=== PATIENT | female | born 1945 | race Hispanic/Latino ===

== ENCOUNTER 2018-07-21 12:42 | Inpatient (IN) | payer MEDICARE ==
[2018-07-21 12:42] VITALS: BMI 35.4
--- NOTE | 2018-07-21 13:13 | ED PDOC ---
Arrival/HPI - General Historian: Patient, Family (Sister) - History of Present Illness Narrative History of Present Illness (Text): 07/21/18 13:06 72 y o female PMhx HTN, TIA (2016) presents to the ED [facility] after being found lying down on floor by sister this am. Pt's sister at bedside states that she called pt this am over the phone, stated that her speech sounded funny, and went over to the house to visit her. States she found pt lying down on floor on R side. Unknown time down on floor. Pt lives alone at home, uses walker to ambulate regularly. Unknown if pt hit head or lost consciousness during fall. Pt denies being in any pain currently, in no acute distress. Denies headache, dizziness, fever, chills, chest pain, sob, n/v/d/c, abd pain, urinary complaints or other symptoms currently. Denies hx of multiple falls recently. Denies hx of being on blood thinners. PMhx: HTN, TIA (2016) PSurgHx: tonsillectomy in childhood Allergies: NKDA Home meds: not known as per pt and pt's sister Fam hx: denies Soc hx: denies smoking, EtOH or illicit drug use PMD: Dr. Thompson Time/Duration: Prior to Arrival Symptom Onset: Other (Unknown) Symptom Course: Unchanged Quality: Unable to Describe Activities at Onset: Other (Unknown) Context: Home <Canelo Spring - Last Filed: 07/21/18 17:07> <Sean Samuel - Last Filed: 07/25/18 11:07> - General Chief Complaint: Trauma Time Seen by Provider: 07/21/18 12:43 Past Medical History - Provider Review Nursing Documentation Reviewed: Yes - Travel History Have you recently traveled outside [place] w/in the past 3 mons?: No - Infectious Disease Hx of Infectious Diseases: None - Reproductive Menopause: Yes - Cardiac Hx Cardiac Disorders: Yes Hx Hypertension: Yes - Pulmonary Hx Respiratory Disorders: No - Neurological Hx Neurological Disorder: Yes Hx Transient Ischemic Attacks (TIA): Yes (02-28-16) - HEENT Hx HEENT Disorder: No - Renal Hx Renal Disorder: No - Endocrine/Metabolic Hx Endocrine Disorders: No - Hematological/Oncological Hx Blood Disorders: No - Integumentary Hx Dermatological Disorder: Yes (MOHS SX TO FACE) - Musculoskeletal/Rheumatological Hx Musculoskeletal Disorders: Yes Hx Falls: No Hx Gout: Yes (LEFT ARM WITH SX.) - Gastrointestinal Hx Gastrointestinal Disorders: No - Genitourinary/Gynecological Hx Genitourinary Disorders: Yes Hx Incontinence: Yes (WEARS POISE PADS/URGENCY,FREQUENCY) - Psychiatric Hx Psychophysiologic Disorder: No Hx Substance Use: No - Surgical History Hx Orthopedic Surgery: Yes (LEFT ARM SX FROM FALL/FX) - Anesthesia Hx Anesthesia: Yes Hx Anesthesia Reactions: No Hx Malignant Hyperthermia: No <Canelo Spring - Last Filed: 07/21/18 17:07> Family/Social History Family/Social History: No Known Family HX Smoking Status: Never Smoked Hx Alcohol Use: No Hx Substance Use: No <Canelo Spring - Last Filed: 07/21/18 17:07> Allergies/Home Meds <Canelo Spring - Last Filed: 07/21/18 17:07> <Sean Samuel - Last Filed: 07/25/18 11:07> Allergies/Adverse Reactions: Allergies No Known Allergies Allergy (Verified 07/21/18 12:53) Home Medications: Home Meds Medication Instructions Recorded Confirmed RX: Lisinopril [Zestril] 40 mg PO DAILY 07/21/18 07/21/18 Review of Systems - Physician Review All systems were reviewed & negative as marked: Yes - Review of Systems Constitutional: absent: Fatigue, Fevers, Night Sweats Eyes: absent: Vision Changes ENT: absent: Hearing Changes, Tinnitus Respiratory: absent: SOB, Cough, Sputum, Wheezing Cardiovascular: absent: Chest Pain, Palpitations, Edema, HINOJOSA Gastrointestinal: absent: Abdominal Pain, Stool Changes, Constipation, Diarrhea, Nausea, Vomiting, Appetite Changes Genitourinary Female: absent: Dysuria, Frequency, Urine Output Changes Musculoskeletal: absent: Arthralgias, Back Pain, Neck Pain, Myalgias Skin: absent: Rash Neurological: absent: Headache, Dizziness, Focal Weakness, Gait Changes Endocrine: absent: Diaphoresis <Canelo Spring - Last Filed: 07/21/18 17:07> Physical Exam Appearance: Positive for: Well-Appearing, Non-Toxic, Comfortable Pain Distress: None Mental Status: Positive for: other (AAOx2) - Systems Exam Head: Present: Atraumatic, Normocephalic Pupils: Present: PERRL Extroacular Muscles: Present: EOMI Conjunctiva: Present: Normal Mouth: Present: Moist Mucous Membranes Neck: Present: Normal Range of Motion. No: MIDLINE TENDERNESS, JVD, Lymphadenopathy Respiratory/Chest: Present: Clear to Auscultation, Good Air Exchange. No: Respiratory Distress, Accessory Muscle Use, Wheezes, Rales, Rhonchi Cardiovascular: Present: Regular Rate and Rhythm, Normal S1, S2. No: Murmurs, Rub, Gallop Abdomen: Present: Normal Bowel Sounds. No: Tenderness, Distention, Guarding, Mass/Organomegaly Back: Present: Normal Inspection. No: Paraspinal Tenderness, Pain with Leg Raise Upper Extremity: Present: Normal Inspection, Normal ROM, NORMAL PULSES, Neurovascularly Intact, Capillary Refill < 2s. No: Cyanosis, Edema, Temperature Abnormalties Lower Extremity: Present: Normal Inspection, NORMAL PULSES, Normal ROM, Neurovascularly Intact, Capillary Refill < 2 s. No: Edema, CALF TENDERNESS Neurological: Present: GCS=15, CN II-XII Intact, Speech Normal, Motor Func Grossly Intact, Normal Sensory Function, Normal Cerebellar Funct Skin: Present: Warm, Dry, Other (Contusion noted adjacent to R elbow). No: Rashes Psychiatric: Present: Alert (Oriented x2), Normal Insight, Normal Concentration <Canelo Spring - Last Filed: 07/21/18 17:07> Medical Decision Making ED Course and Treatment: 07/21/18 13:16 72 y o female PMHx HTN, TIA BiBEMS s/p being found on floor at home. Plan: -Labs -EKG -Imaging Will continue to monitor. 07/21/18 14:47 WBC 20.7. Troponin elevated at 6.34. CT head demonstrates 5 mm round high attenuation at L basal ganglia/thalamus new compared to prior exam. Differential consideration includes hemorrhagic small lesion vs. less likely posttraumatic in deep hemorrhage. F/u study or further eval by MRI suggested. Case endorsed to Dr. Thompson, who will accept pt under his service. Requested ICU eval and Dr. Donohue to consulted for Cardiology. Case endorsed to ICU clearing distribution clerk Dr. Ortiz, who will come to evaluate pt. Placed call out to Dr. Livingston's service (Neurosurgery), awaiting callback by attending. - RAD Interpretation Radiology Orders: 07/21/18 13:05 CHEST PORTABLE [RAD] Stat - EKG Interpretation EKG Interpretation (Text): 07/21/18 13:23 NSR at 98 bpm, LBBB unchanged from prior study in 2016. Interpreted by ED Physician: Yes Type: 12 lead EKG <Canelo Spring - Last Filed: 07/21/18 17:07> ED Course and Treatment: 07/21/18 13:52 Patient is a 72 year old female presenting to the emergency department for an unwitnessed fall. In agreement with resident note, which includes further HPI details. Patient was seen and evaluated with resident, came up with plan and treatment together. s/p "found on floor". pt found with nstemi, rhabdo, ?intracranial bleed. accepted icu. 07/25/18 11:06 - RAD Interpretation Radiology Orders: 07/21/18 13:05 CHEST PORTABLE [RAD] Stat 07/21/18 13:06 HEAD W/O CONTRAST [CT] Stat ELBOW RIGHT 3 VIEWS ROUTINE [RAD] Stat <Sean Samuel - Last Filed: 07/25/18 11:07> - PA / HUMANITIES PROFESSOR / Resident Statement MD/DO has reviewed & agrees with the documentation as recorded. MD/DO has examined the patient and agrees with the treatment plan. - Scribe Statement The provider has reviewed the documentation as recorded by the Tony Bhatia All medical record entries made by the Tony were at my direction and personally dictated by me. I have reviewed the chart and agree that the record accurately reflects my personal performance of the history, physical exam, medical decision making, and the department course for this patient. I have also personally directed, reviewed, and agree with the discharge instructions and disposition. <Sean Samuel - Last Filed: 07/25/18 11:07> Disposition/Present on Arrival - Present on Arrival Any Indicators Present on Arrival: No History of DVT/PE: No History of Uncontrolled Diabetes: No Urinary Catheter: No History of Decub. Ulcer: No History Surgical Site Infection Following: None - Disposition Have Diagnosis and Disposition been Completed?: Yes Disposition Time: 16:30 Patient Plan: ICU <Canelo Spring - Last Filed: 07/21/18 17:07> <Sean Samuel - Last Filed: 07/25/18 11:07> - Disposition Diagnosis: NSTEMI (non-ST elevated myocardial infarction), Rhabdomyolysis, Status post fall, Leukocytosis Disposition: HOSPITALIZED Patient Problems: Current Active Problems Problem Status Onset Leukocytosis Acute NSTEMI (non-ST elevated myocardial infarction) Acute Rhabdomyolysis Acute Status post fall Acute Condition: GUARDED
[2018-07-21 14:01] LABS: ALB/GLOB RATIO 1.3 (1.1-1.8); ALBUMIN 4.6 g/dL (3.0-4.8); ALT/SGPT 48 U/L (7-56); AST/SGOT 171 U/L (14-36); BLOOD UREA NITROGEN 28 mg/dL (7-21); CALCIUM 9.8 mg/dL (8.4-10.5); GFR NON-AFRICAN AMERICAN 55
[2018-07-21 14:04] LABS: BASO # 0.01 K/mm3 (0.0-2.0); GRAN # 18.51 (1.4-6.5); GRAN % 89.6 % (50.0-68.0); HEMOGLOBIN 16.3 g/dL (12.0-16.0); LYMPH # 1.7 (1.2-3.4); MEAN CELL VOLUME 94.2 fl (80.0-105.0); MEAN CORPUSCULAR HEMOGLOBIN 32.8 pg (25.0-35.0); MEAN CORPUSCULAR HGB CONC 34.8 g/dl (31.0-37.0); MEAN PLATELET VOLUME 11.3 fl (7.0-11.0); MONO # 0.5 (0.1-0.6); MONO % 2.4 % (1.0-6.0); RBC 4.97 10^6/uL (3.5-6.1); RED CELL DISTRIBUTION WIDTH 13.5 % (11.5-14.5); WHITE BLOOD COUNT 20.7 10^3/uL (4.5-11.0)
[2018-07-21 14:15] LABS: INR 1.03; PARTIAL THROMBOPLASTIN TIME 25.6 Seconds (25.1-36.5); PROTHROMBIN TIME 11.7 SECONDS (9.4-12.5)
[2018-07-21 14:16] LABS: TROPONIN I 6.34 ng/mL
--- NOTE | 2018-07-21 14:40 | CT ---
Date of service: 07/21/2018 PROCEDURE: CT HEAD WITHOUT CONTRAST. HISTORY: fall COMPARISON: Comparison is made to the previous study dated 02/27/2016 TECHNIQUE: Axial computed tomography images were obtained through the head/brain without intravenous contrast. Radiation dose: Total exam DLP = 959.27 mGy-cm. This CT exam was performed using one or more of the following dose reduction techniques: Automated exposure control, adjustment of the mA and/or kV according to patient size, and/or use of iterative reconstruction technique. FINDINGS: HEMORRHAGE: There is around 5 millimeter high attenuation lesion at left basal ganglia/ thalamus may represent hemorrhagic lesion or less likely posttraumatic hemorrhage. These findings are new when compared to the previous exam. Otherwise no evidence of acute intracranial hemorrhage. BRAIN: No evidence of mass effect or midline shift. Volume loss and moderate to extensive white matter chronic microvascular ischemic changes are again noted. VENTRICLES: Unremarkable. No hydrocephalus. CALVARIUM: Unremarkable. PARANASAL SINUSES: Unremarkable as visualized. No significant inflammatory changes. MASTOID AIR CELLS: Unremarkable as visualized. No inflammatory changes. OTHER FINDINGS: None. IMPRESSION: 5 millimeter round high attenuation at the left basal ganglia/thalamus new compared to the previous exam. The differential consideration includes hemorrhagic small lesion versus less likely posttraumatic in deep hemorrhage. Follow-up study or further evaluation by MRI is suggested. Volume loss and chronic microvascular white matter ischemic disease.
[2018-07-21 15:01] LABS: CK MB% 0.7 % (2.5-3.0); CK-MB 35.9 ng/mL (0.0-3.6)
[2018-07-21] MEDS ORDERED: Sodium Chloride 0.9% 1,000 ML IV STA (15:03)
--- NOTE | 2018-07-21 15:39 | CP.PCM.CON ---
History of Present Illness - History of Present Illness History of Present Illness: MICU CONSULT NOTE HPI Patient is 72yo female with PMHx of HTN, TIA, presented after being found down on the floor by her relative. As per the patient she "tripped on some shoes, and fell, was down for 15 minutes". The patient denies fever, chills, cough, chest pain, sob, palpitations, JACOME, dizziness. NO other constitutional symptoms. NO major complaints. Labs demonstrated multiple derrangements, including elevated CPK, Troponin. CT head with questionable BG bleed, MRI pending. ECHO being done currently, cardiology and neurology consulted. PMhx: HTN, TIA (2016) PSurgHx: tonsillectomy Allergies: NKDA Home meds: unknown Fam hx: denies Soc hx: denies smoking, EtOH or illicit drug use Review of Systems - Review of Systems Review of Systems: as per HPI Past Patient History - Infectious Disease Hx of Infectious Diseases: None - Past Social History Smoking Status: Never Smoked - CARDIAC Hx Cardiac Disorders: Yes Hx Hypertension: Yes - PULMONARY Hx Respiratory Disorders: No - NEUROLOGICAL Hx Neurological Disorder: Yes Hx Transient Ischemic Attacks (TIA): Yes (02-28-16) - HEENT Hx HEENT Problems: No - RENAL Hx Chronic Kidney Disease: No - ENDOCRINE/METABOLIC Hx Endocrine Disorders: No - HEMATOLOGICAL/ONCOLOGICAL Hx Blood Disorders: No - INTEGUMENTARY Hx Dermatological Problems: Yes (MOHS SX TO FACE) - MUSCULOSKELETAL/RHEUMATOLOGICAL Hx Musculoskeletal Disorders: Yes Hx Falls: No Hx Gout: Yes (LEFT ARM WITH SX.) - GASTROINTESTINAL Hx Gastrointestinal Disorders: No - GENITOURINARY/GYNECOLOGICAL Hx Genitourinary Disorders: Yes Hx Incontinence: Yes (WEARS POISE PADS/URGENCY,FREQUENCY) - PSYCHIATRIC Hx Psychophysiologic Disorder: No Hx Substance Use: No - SURGICAL HISTORY Hx Orthopedic Surgery: Yes (LEFT ARM SX FROM FALL/FX) - ANESTHESIA Hx Anesthesia: Yes Hx Anesthesia Reactions: No Hx Malignant Hyperthermia: No Meds Allergies/Adverse Reactions: Allergies Allergy/AdvReac Type Severity Reaction Status Date / Time No Known Allergies Allergy Verified 07/21/18 12:53 - Medications Medications: Current Medications Sodium Chloride (Sodium Chloride 0.9%) 1,000 mls @ 999 mls/hr IV .Q1H1M STA Stop: 07/21/18 16:03 Last Admin: 07/21/18 15:11 Dose: 999 mls/hr Physical Exam - Constitutional Appears: Well, Non-toxic - Head Exam Head Exam: ATRAUMATIC - Eye Exam Eye Exam: EOMI - ENT Exam ENT Exam: Mucous Membranes Moist - Neck Exam Neck exam: Positive for: Full Rom - Respiratory Exam Respiratory Exam: Clear to Auscultation Bilateral, NORMAL BREATHING PATTERN - Cardiovascular Exam Cardiovascular Exam: REGULAR RHYTHM, +S1, +S2 - GI/Abdominal Exam GI & Abdominal Exam: Normal Bowel Sounds, Soft - Extremities Exam Extremities exam: Positive for: normal inspection - Back Exam Back exam: NORMAL INSPECTION - Neurological Exam Neurological exam: Alert, Oriented x3 - Psychiatric Exam Psychiatric exam: Normal Affect, Normal Mood - Skin Skin Exam: Normal Color, Warm Results - Vital Signs Recent Vital Signs: Last Vital Signs Temp 97.7 F 07/21/18 14:15 Pulse 99 H 07/21/18 14:15 Resp 18 07/21/18 14:15 BP 138/83 07/21/18 14:15 Pulse Ox 94 L 07/21/18 14:15 - Labs Result Diagrams: 07/21/18 13:10 07/21/18 13:10 Labs: Laboratory Results - last 24 hr 07/21/18 07/21/18 07/21/18 13:10 13:10 13:10 WBC 20.7 H RBC 4.97 Hgb 16.3 H Hct 46.8 MCV 94.2 MCH 32.8 MCHC 34.8 RDW 13.5 Plt Count 210 MPV 11.3 H Gran % 89.6 H Lymph % (Auto) 8.0 L Hays % (Auto) 2.4 Eos % (Auto) 0.0 L Baso % (Auto) 0.0 Gran # 18.51 H Lymph # (Auto) 1.7 Hays # (Auto) 0.5 Eos # (Auto) 0.0 Baso # (Auto) 0.01 PT 11.7 INR 1.03 APTT 25.6 Sodium 143 Potassium 4.3 Chloride 107 Carbon Dioxide 26 Anion Gap 14 BUN 28 H Creatinine 1.0 Est GFR ( Amer) > 60 Est GFR (Non-Af Amer) 55 Random Glucose 117 H Calcium 9.8 Magnesium 2.2 Total Bilirubin 1.1 AST 171 H ALT 48 Alkaline Phosphatase 107 Lactate Dehydrogenase 1060 H Total Creatine Kinase 4971 H CK-MB (CK-2) 35.9 H CK-MB (CK-2) % 0.7 L Troponin I 6.34 H* D Total Protein 8.1 Albumin 4.6 Globulin 3.5 Albumin/Globulin Ratio 1.3 - EKG Data EKG comments: NSR, LBBB (old), NSST changes - Imaging and Cardiology Chest x-ray Status: Image reviewed by me, Report reviewed by me Assessment & Plan - Assessment and Plan (Free Text) Assessment: 72yo female a/w rhabdo, elevated troponin, possible ICH Rhabdomyolosis Elevated Troponin Fall rule out ICH Fall Dehydration - currently afebrile, BP stable, comfortable in NAD, AAOx3, NAD, providing full history, denies any complaints - will obtain MRI brain stat, if negative for bleed, will start dual anti platelet, Heparin, possible cath, cardiology Dr Donohue Consulted Recommend: - supp o2 as needed, duonebs PRN - panculture, UCx, BCx, UA, check Procal, no obvious source of infection would hold Abx for now - IVF 125cc/hr - hold ASA, Plavix, Heparin for now, until MRI brain is done to rule out whether or not patient as ICH - cardiology eval - Neuro eval - ECHO - NPO - Troponin, CPK q6hr - GI ppx - DVT ppx, SCDs - Admit to CCU critical care time 35 minutes
--- NOTE | 2018-07-21 16:42 | RAD ---
Date of service: 07/21/2018 PROCEDURE: Radiographs of the right elbow. HISTORY: trauma COMPARISON: No prior. FINDINGS: BONES: Normal. No fracture. JOINTS: Normal. No osteoarthritis. SOFT TISSUES: Normal. JOINT EFFUSION: None. OTHER FINDINGS: None. IMPRESSION: Unremarkable radiographs of the right elbow.
--- NOTE | 2018-07-21 16:43 | RAD ---
Date of service: 07/21/2018 HISTORY: Weakness. COMPARISON: 02/27/2016. FINDINGS: LUNGS: No active pulmonary disease. PLEURA: No significant pleural effusion identified, no pneumothorax apparent. CARDIOVASCULAR: Atherosclerotic calcifications identified primarily aortic arch. Cardiomegaly. Cephalization of pulmonary vascularity similar to that seen previously. OSSEOUS STRUCTURES: No significant abnormalities. VISUALIZED UPPER ABDOMEN: Normal. OTHER FINDINGS: None. IMPRESSION: No active disease. No significant interval change compared to the prior examination(s).
--- NOTE | 2018-07-21 17:11 | MRI ---
Date of service: 07/21/2018 PROCEDURE: MRI BRAIN WITHOUT CONTRAST HISTORY: cva COMPARISON: Comparison is made to the previous same-day CT of the head without contrast TECHNIQUE: Multiplanar, multisequence MR images of the brain were obtained without intravenous contrast enhancement. FINDINGS: HEMORRHAGE: No evidence of acute intracranial hemorrhage noted in the T1 images. DWI: No evidence of diffusion restriction in the brain to suggest acute or subacute infarct BRAIN PARENCHYMA: No evidence of mass effect or midline shift. There are scattered punctate foci of hypo intense T2 GRE images in white matter more prominent in left thalamus and basal ganglia likely represent micro hemorrhage likely due to amyloid angiopathy or hypertensive cerebral angiopathy. Mild volume loss. Moderate white matter changes are noted likely due to chronic microvascular ischemic disease. VENTRICLES: Unremarkable. No hydrocephalus. CRANIUM: Unremarkable. ORBITS: Grossly unremarkable. PARANASAL SINUSES/MASTOIDS: No evidence of acute sinusitis. Partial opacification of the mastoids noted. VASCULAR SYSTEM: Skull base flow voids intact. OTHER FINDINGS: None. IMPRESSION: No evidence of acute infarct. No evidence of hyperintense T1 signal in the brain parenchyma to suggest acute hemorrhage. Findings suggestive of microhemorrhage in the brain parenchyma likely due to amyloid angiopathy or hypertensive cerebral angiopathy.
[2018-07-21 17:15] LABS: CK-MB 28.7 ng/mL (0.0-3.6)
[2018-07-21] MEDS: Sodium Chloride 0.9% 1,000 ML IV SCH (17:36)
[2018-07-21] MEDS: Heparin25000 units/250ml 1/2NS 25,000 UNITS/250 ML BAG IV SCH (18:11)
--- NOTE | 2018-07-21 18:43 | CARD ---
APPROVED REPORT Date of service: 07/21/2018 EKG Measurement Heart [id number] <Conclusion> Normal sinus rhythm Left bundle branch block Abnormal ECG
--- NOTE | 2018-07-21 22:06 | CON ---
DATE OF CONSULTATION: 07/21/2018 HISTORY: The patient is a 72-year-old woman, who was found unconscious. She was brought back and in the emergency room was found to have troponins that were greater than 6. Currently, the patient is chest pain free. She is unaware of any cardiac history other than history of hypertension, in which she is on lisinopril. From her primary care doctors, the patient has baseline atrial fibrillation in the past. She denies angina, denies shortness of breath, is awake. SOCIAL HISTORY: The patient denies smoking. REVIEW OF SYSTEMS: A 14-point review of systems is reviewed in detail. No cardiac symptoms elicited. PHYSICAL EXAMINATION: VITAL SIGNS: Blood pressure 138/83, heart rate is atrial fibrillation in the 80s. NECK: Negative JVD. LUNGS: Decreased breath sounds bilaterally. HEART: Soft systolic ejection murmur. EXTREMITIES: No edema noted. LABORATORIES: Hemoglobin is 16.3, white count is 20.7. Chemistries: BUN and creatinine are unremarkable. Total CPK is elevated. The troponin is greater than 6. EKG shows normal sinus rhythm with left bundle-branch block. Preliminary echocardiogram reveals depressed LV function with an EF of 25-30%. There is aortic valve sclerosis. IMPRESSION: 1. Syncope. 2. [id number] myocardial infarction. 3. Coronary artery disease, high probability. 4. Dilated cardiomyopathy. 5. Aortic sclerosis. 6. Mild rhabdomyolysis. 7. Hypertension. 8. Obesity. 9. Elevated CPKs consistent with her fall. 10. Borderline diabetes mellitus. PLAN: Given these findings, once we are able to clearly rule out an intracerebral hemorrhage, the patient should be placed on aspirin, Plavix as well as heparin. Once the intracranial event is also cleared up, we will consider taking the patient to the film laboratory technician to evaluate her coronary arteries. Gurmeet Donohue MD
[2018-07-22 07:58] LABS: BASO # 0.01 K/mm3 (0.0-2.0); BASO % 0.1 % (0.0-3.0); GRAN # 16.03 (1.4-6.5); GRAN % 86.9 % (50.0-68.0); HEMOGLOBIN 14.8 g/dL (12.0-16.0); LYMPH # 0.8 (1.2-3.4); LYMPH % 4.6 % (22.0-35.0); MEAN CELL VOLUME 95.6 fl (80.0-105.0); MEAN CORPUSCULAR HEMOGLOBIN 32.3 pg (25.0-35.0); MEAN CORPUSCULAR HGB CONC 33.8 g/dl (31.0-37.0); MEAN PLATELET VOLUME 11.4 fl (7.0-11.0); MONO # 1.5 (0.1-0.6); MONO % 8.4 % (1.0-6.0); PLATELET COUNT 169 10^3/uL (120.0-450.0); RBC 4.58 10^6/uL (3.5-6.1); WHITE BLOOD COUNT 18.4 10^3/uL (4.5-11.0)
[2018-07-22 08:24] LABS: BAND 2 % (0-2); LYMPHOCYTE 5 % (22.0-35.0); MONOCYTE 5 % (1.0-6.0); NEUTROPHIL 88 % (50.0-70.0)
[2018-07-22 08:38] LABS: ALB/GLOB RATIO 1.2 (1.1-1.8); ALBUMIN 3.7 g/dL (3.0-4.8); ALT/SGPT 53 U/L (7-56); AST/SGOT 161 U/L (14-36); BLOOD UREA NITROGEN 26 mg/dL (7-21); CALCIUM 8.8 mg/dL (8.4-10.5); GFR NON-AFRICAN AMERICAN > 60
[2018-07-22 09:41] LABS: CK MB% 0.4 % (2.5-3.0); CK-MB 10.3 ng/mL (0.0-3.6)
[2018-07-22] MEDS: Sodium Chloride 0.9% 1,000 ML IV SCH (10:34)
--- NOTE | 2018-07-22 11:49 | CP.PCM.PN ---
Subjective - Date & Time of Evaluation Date of Evaluation: 07/22/18 Time of Evaluation: 07:30 - Subjective Subjective: Patient seen and examined, reports NO major complaints. Objective - Vital Signs/Intake and Output Vital Signs (last 24 hours): Temp Pulse Resp BP Pulse Ox 98 F 98 H 21 149/87 97 07/22/18 08:00 07/22/18 08:59 07/22/18 08:59 07/22/18 09:00 07/22/18 08:59 Intake and Output: 07/22/18 07/22/18 06:59 18:59 Intake Total 165 Balance 165 - Medications Medications: Current Medications Aspirin (Aspirin) 325 mg PO DAILY [facility] Last Admin: 07/22/18 10:39 Dose: 325 mg Clopidogrel Bisulfate (Plavix) 75 mg PO DAILY [facility] Last Admin: 07/22/18 10:38 Dose: 75 mg Sodium Chloride (Sodium Chloride 0.9%) 1,000 mls @ 60 mls/hr IV .[id number] [facility] Last Admin: 07/22/18 10:34 Dose: 60 mls/hr Heparin Sodium/Sodium Chloride (Heparin 30243 Units/250ml 1/2 Normal Saline) 25,000 units in 250 mls @ 11.43 mls/hr IV .[id number] [facility]; Protocol Last Titration: 07/22/18 09:20 Dose: 14 units/kg/hr, 13.336 mls/hr - Labs Labs: 07/22/18 07:45 07/22/18 07:45 PT 11.7 SECONDS (9.4-12.5) 07/21/18 13:10 INR 1.03 07/21/18 13:10 APTT 47.9 Seconds (25.1-36.5) H 07/22/18 07:45 - Constitutional Appears: Non-toxic, No Acute Distress - Head Exam Head Exam: NORMAL INSPECTION - Eye Exam Eye Exam: Normal appearance - ENT Exam ENT Exam: Mucous Membranes Dry - Neck Exam Neck Exam: Full ROM - Respiratory Exam Respiratory Exam: Clear to Ausculation Bilateral, NORMAL BREATHING PATTERN - Cardiovascular Exam Cardiovascular Exam: REGULAR RHYTHM, +S1, +S2 - GI/Abdominal Exam GI & Abdominal Exam: Soft, Normal Bowel Sounds - Extremities Exam Extremities Exam: Normal Inspection - Neurological Exam Neurological Exam: Alert, Awake, Oriented x3 - Psychiatric Exam Psychiatric exam: Normal Affect - Skin Skin Exam: Normal Color, Warm Assessment and Plan - Assessment and Plan (Free Text) Assessment: 72yo female a/w rhabdo, elevated troponin, NSTEMI Rhabdomyolosis Elevated Troponin, NSTEMI Fall Dehydration - currently afebrile, BP stable, comfortable in NAD, AAOx3, NO major complaints - labs, imaging, chart reviewed, troponin downtrending, CPK downtrending, overall clinically improving - MRI brain with no ICH noted Recommend: - supp o2 as needed, duonebs PRN - follow up UCx, BCx, UA, check Procal, no obvious source of infection would hold Abx for now - possible cath Tuesday, will follow up with Cardiology - IVF 60cc/hr, EF 25% on ECHO - ASA, Plavix, Heparin drip - cardiology follow up - Neuro eval - ECHO official read - GI ppx - DVT ppx,Heparin drip - Monitor in CCU
--- NOTE | 2018-07-22 14:05 | CP.PCM.CON ---
History of Present Illness - History of Present Illness History of Present Illness: Neurology Consultation Note: Mrs. Ding is a 72-year-old woman with a past medical history of HTN, who apparently fell at home after tripping on shoes and was down for about 15 minutes. However, when she was brought to the ED, labs demonstrated elevated CPK and troponins. Non-contrast CT scan of the head was uncertain for possible bleed. MRI of the brain showed chronic microhemorrhages, but no acute findings. I spoke with the resident after these findings were uncovered and recommended that the NSTEMI should be treated since these findings are chronic and do not indicate any risk for hemorrhage at the moment. Review of Systems - Constitutional Constitutional: As Per HPI - EENT Eyes: absent: As Per HPI, Blind Spots, Blurred Vision, Change in Vision, Decreased Night Vision, Diplopia, Discharge, Dry Eye, Exophthalmos, Floaters, Irritation, Itchy Eyes, Loss of Peripheral Vision, Pain, Photophobia, Requires Corrective Lenses, Sees Flashes, Spots in Vision, Tunnel Vision, Other Visual Disturbances, Loss of Vision, Other Ears: absent: As Per HPI, Decreased Hearing, Ear Discharge, Ear Pain, Tinnitus, Abnormal Hearing, Disequilibrium, Dizziness, Other Nose/Mouth/Throat: absent: As Per HPI, Epistaxis, Nasal Congestion, Nasal Discharge, Nasal Obstruction, Nasal Trauma, Nose Pain, Post Nasal Drip, Sinus Pain, Sinus Pressure, Bleeding Gums, Change in Voice, Dental Pain, Dry Mouth, Dysphagia, Halitosis, Hoarsness, Lip Swelling, Mouth Lesions, Mouth Pain, Odynophagia, Sore Throat, Throat Swelling, Tongue Swelling, Facial Pain, Neck Pain, Neck Mass, Other - Cardiovascular Cardiovascular: As Per HPI - Gastrointestinal Gastrointestinal: absent: As Per HPI, Abdominal Pain, Belching, Bloating, Change in Bowel Habits, Change in Stool Character, Coffee Ground Emesis, Constipation, Cramping, Diarrhea, Dyspepsia, Dysphagia, Early Satiety, Excessive Flatus, Fecal Incontinence, Heartburn, Hematemesis, Hematochezia, Loose Stools, Melena, Nausea, Odynophagia, Temesmus, Vomiting, Other - Musculoskeletal Musculoskeletal: absent: As Per HPI, Abnormal Gait, Arthralgias, Atrophy, Back Pain, Deformity, Joint Swelling, Limited Range of Motion, Loss of Height, Muscle Cramps, Muscle Weakness, Myalgias, Neck Pain, Numbness, Radiating Pain into Limb, Stiffness, Tingling, Other - Integumentary Integumentary: absent: As Per HPI, Acne, Alopecia, Bleeding Lesions, Change in Hair, Change in Nails, Change in Pigmentation, Changing Lesions, Dry Skin, Erythema, Furuncle, Hirsutism, Lesions, New Lesions, Non-Healing Lesions, Photosensitivity, Pruritus, Rash, Skin Pain, Skin Ulcer, Sores, Striae, Swelling, Unusual Bruising, Wounds, Jaundice, Other - Neurological Neurological: As Per HPI - Psychiatric Psychiatric: absent: As Per HPI, Abnormal Sleep Pattern, Anhedonia, Anxiety, Auditory Hallucinations, Behavioral Changes, Change in Appetite, Change in Libido, Confusion, Depression, Difficulty Concentrating, Hallucinations, Homicidal Ideation, Hopelessness, Irritability, Memory Loss, Mood Swings, Panic Attacks, Paranoia, Suicidal Ideation, Visual Hallucinations, Tactile Hallucinations, Other - Endocrine Endocrine: absent: As Per HPI, Change in Body Appearance, Change in Libido, Cold Intolorance, Deepening of Voice, Excessive Sweating, Fatigue, Flushing, Heat Intolorance, Increase in Ring/Shoe/Hat Size, Palpitations, Polydipsia, Polyphagia, Polyuria, Other - Hematologic/Lymphatic Hematologic: absent: As Per HPI, Easy Bleeding, Easy Bruising, Lymphadenopathy, Other Past Patient History - Infectious Disease Hx of Infectious Diseases: None - Past Social History Smoking Status: Never Smoked - CARDIAC Hx Cardiac Disorders: Yes Hx Hypertension: Yes - PULMONARY Hx Respiratory Disorders: No - NEUROLOGICAL Hx Neurological Disorder: Yes Hx Transient Ischemic Attacks (TIA): Yes (02-28-16) - HEENT Hx HEENT Problems: No - RENAL Hx Chronic Kidney Disease: No - ENDOCRINE/METABOLIC Hx Endocrine Disorders: No - HEMATOLOGICAL/ONCOLOGICAL Hx Blood Disorders: No - INTEGUMENTARY Hx Dermatological Problems: Yes (MOHS SX TO FACE) - MUSCULOSKELETAL/RHEUMATOLOGICAL Hx Musculoskeletal Disorders: Yes Hx Falls: Yes Hx Gout: Yes (LEFT ARM WITH SX.) - GASTROINTESTINAL Hx Gastrointestinal Disorders: No - GENITOURINARY/GYNECOLOGICAL Hx Genitourinary Disorders: Yes Hx Incontinence: Yes (WEARS POISE PADS/URGENCY,FREQUENCY) - PSYCHIATRIC Hx Psychophysiologic Disorder: No - SURGICAL HISTORY Hx Orthopedic Surgery: Yes (LEFT ARM SX FROM FALL/FX) - ANESTHESIA Hx Anesthesia: Yes Hx Anesthesia Reactions: No Hx Malignant Hyperthermia: No Meds Allergies/Adverse Reactions: Allergies Allergy/AdvReac Type Severity Reaction Status Date / Time No Known Allergies Allergy Verified 07/21/18 12:53 - Medications Medications: Current Medications Aspirin (Aspirin) 325 mg PO DAILY [facility] Last Admin: 07/22/18 10:39 Dose: 325 mg Clopidogrel Bisulfate (Plavix) 75 mg PO DAILY [facility] Last Admin: 07/22/18 10:38 Dose: 75 mg Sodium Chloride (Sodium Chloride 0.9%) 1,000 mls @ 60 mls/hr IV .[id number] [facility] Last Admin: 07/22/18 10:34 Dose: 60 mls/hr Heparin Sodium/Sodium Chloride (Heparin 77175 Units/250ml 1/2 Normal Saline) 25,000 units in 250 mls @ 11.43 mls/hr IV .[id number] [facility]; Protocol Last Titration: 07/22/18 09:20 Dose: 14 units/kg/hr, 13.336 mls/hr Physical Exam - Constitutional Appears: Well - Head Exam Head Exam: ATRAUMATIC, NORMAL INSPECTION, NORMOCEPHALIC - Eye Exam Eye Exam: EOMI, Normal appearance, PERRL Pupil Exam: NORMAL ACCOMODATION, PERRL - ENT Exam ENT Exam: Mucous Membranes Moist, Normal Exam - Neck Exam Neck exam: Positive for: Normal Inspection - Respiratory Exam Respiratory Exam: Clear to Auscultation Bilateral, NORMAL BREATHING PATTERN - Cardiovascular Exam Cardiovascular Exam: REGULAR RHYTHM, +S1, +S2 - GI/Abdominal Exam GI & Abdominal Exam: Normal Bowel Sounds, Soft. absent: Tenderness - Rectal Exam Rectal Exam: Deferred - Extremities Exam Extremities exam: Positive for: normal inspection - Back Exam Back exam: NORMAL INSPECTION - Neurological Exam Neurological exam: Alert, CN II-XII Intact, Normal Gait, Oriented x3, Reflexes Normal - Psychiatric Exam Psychiatric exam: Normal Affect, Normal Mood - Skin Skin Exam: Dry, Intact, Normal Color, Warm Results - Vital Signs Recent Vital Signs: Last Vital Signs Temp 98.7 F 07/22/18 12:00 Pulse 98 H 07/22/18 08:59 Resp 21 07/22/18 08:59 BP 149/87 07/22/18 09:00 Pulse Ox 97 07/22/18 08:59 - Labs Result Diagrams: 07/22/18 07:45 07/22/18 07:45 Labs: Laboratory Results - last 24 hr 07/21/18 07/21/18 07/21/18 13:10 13:10 13:10 WBC 20.7 H RBC 4.97 Hgb 16.3 H Hct 46.8 MCV 94.2 MCH 32.8 MCHC 34.8 RDW 13.5 Plt Count 210 MPV 11.3 H Gran % 89.6 H Lymph % (Auto) 8.0 L [place] % (Auto) 2.4 Eos % (Auto) 0.0 L Baso % (Auto) 0.0 Gran # 18.51 H Lymph # (Auto) 1.7 [place] # (Auto) 0.5 Eos # (Auto) 0.0 Baso # (Auto) 0.01 Neutrophils % (Manual) Band Neutrophils % Lymphocytes % (Manual) Monocytes % (Manual) PT 11.7 INR 1.03 APTT 25.6 Sodium 143 Potassium 4.3 Chloride 107 Carbon Dioxide 26 Anion Gap 14 BUN 28 H Creatinine 1.0 Est GFR ( Amer) > 60 Est GFR (Non-Af Amer) 55 Random Glucose 117 H Calcium 9.8 Phosphorus Magnesium 2.2 Total Bilirubin 1.1 AST 171 H ALT 48 Alkaline Phosphatase 107 Lactate Dehydrogenase 1060 H Total Creatine Kinase 4971 H CK-MB (CK-2) 35.9 H CK-MB (CK-2) % 0.7 L Troponin I 6.34 H* D NT-Pro-B Natriuret Pep Total Protein 8.1 Albumin 4.6 Globulin 3.5 Albumin/Globulin Ratio 1.3 Procalcitonin 07/21/18 07/21/18 07/21/18 13:10 16:06 16:06 WBC RBC Hgb Hct MCV MCH MCHC RDW Plt Count MPV Gran % Lymph % (Auto) [place] % (Auto) Eos % (Auto) Baso % (Auto) Gran # Lymph # (Auto) [place] # (Auto) Eos # (Auto) Baso # (Auto) Neutrophils % (Manual) Band Neutrophils % Lymphocytes % (Manual) Monocytes % (Manual) PT INR APTT Sodium Potassium Chloride Carbon Dioxide Anion Gap BUN Creatinine Est GFR ( Amer) Est GFR (Non-Af Amer) Random Glucose Calcium Phosphorus Magnesium Total Bilirubin AST ALT Alkaline Phosphatase Lactate Dehydrogenase Total Creatine Kinase 3852 H CK-MB (CK-2) 28.7 H CK-MB (CK-2) % Troponin I NT-Pro-B Natriuret Pep 91146 H Total Protein Albumin Globulin Albumin/Globulin Ratio Procalcitonin 0.68 H 07/22/18 07/22/18 07/22/18 02:55 07:45 07:45 WBC 18.4 H RBC 4.58 Hgb 14.8 Hct 43.8 MCV 95.6 MCH 32.3 MCHC 33.8 RDW 14.0 Plt Count 169 MPV 11.4 H Gran % 86.9 H Lymph % (Auto) 4.6 L [place] % (Auto) 8.4 H Eos % (Auto) 0.0 L Baso % (Auto) 0.1 Gran # 16.03 H Lymph # (Auto) 0.8 L [place] # (Auto) 1.5 H Eos # (Auto) 0.0 Baso # (Auto) 0.01 Neutrophils % (Manual) 88 H Band Neutrophils % 2 Lymphocytes % (Manual) 5 L Monocytes % (Manual) 5 PT INR APTT 64.2 H Sodium 142 Potassium 4.5 Chloride 111 H Carbon Dioxide 22 Anion Gap 13 BUN 26 H Creatinine 0.9 Est GFR ( Amer) > 60 Est GFR (Non-Af Amer) > 60 Random Glucose 112 H Calcium 8.8 Phosphorus 4.0 Magnesium 2.1 Total Bilirubin 0.7 AST 161 H ALT 53 Alkaline Phosphatase 88 Lactate Dehydrogenase Total Creatine Kinase 2887 H CK-MB (CK-2) 10.3 H CK-MB (CK-2) % 0.4 L Troponin I 3.80 H* D NT-Pro-B Natriuret Pep Total Protein 6.8 Albumin 3.7 Globulin 3.1 Albumin/Globulin Ratio 1.2 Procalcitonin 07/22/18 07:45 WBC RBC Hgb Hct MCV MCH MCHC RDW Plt Count MPV Gran % Lymph % (Auto) [place] % (Auto) Eos % (Auto) Baso % (Auto) Gran # Lymph # (Auto) [place] # (Auto) Eos # (Auto) Baso # (Auto) Neutrophils % (Manual) Band Neutrophils % Lymphocytes % (Manual) Monocytes % (Manual) PT INR APTT 47.9 H Sodium Potassium Chloride Carbon Dioxide Anion Gap BUN Creatinine Est GFR ( Amer) Est GFR (Non-Af Amer) Random Glucose Calcium Phosphorus Magnesium Total Bilirubin AST ALT Alkaline Phosphatase Lactate Dehydrogenase Total Creatine Kinase CK-MB (CK-2) CK-MB (CK-2) % Troponin I NT-Pro-B Natriuret Pep Total Protein Albumin Globulin Albumin/Globulin Ratio Procalcitonin Assessment & Plan (1) Status post fall Assessment and Plan: This does not appear to be neurologically mediated. Continue management per the primary team. The chronic changes on the MRI were addressed and there are no further recommendations. Thank you for the consultation. Status: Acute
--- NOTE | 2018-07-22 14:27 | PN ---
CARDIOLOGY FOLLOWUP DATE: 07/22/2018 SUBJECTIVE: There is no evidence for intracerebral bleed. The patient has tolerated aspirin and heparin. PHYSICAL EXAMINATION: VITAL SIGNS: Stable. NECK: Negative JVD. LUNGS: Without rales. HEART: S1 and S2. EXTREMITIES: Without edema. LABORATORY DATA: The troponin is on descending trend at 3.8. IMPRESSION: 1. Non-ST elevated myocardial infarction. 2. Syncope. 3. High probability for coronary artery disease. 4. Rhabdomyolysis. 5. No evidence for intracerebral bleed. Given these findings, I agree with adding Plavix to her regimen. The patient is scheduled for cardiac catheterization on Tuesday. Gurmeet Donohue MD
--- NOTE | 2018-07-22 15:19 | HP ---
HISTORY OF PRESENT ILLNESS: The patient is a 72-year-old woman with a past medical history of hypertension who presented by EMS after being found down at home. She was reportedly in her usual state of health until the day of presentation to the ED when she was ambulating to the bathroom and sustained a mechanical fall by tripping over a pair of shoes. The patient fell to the ground and is unable to recall for how long she was down. She denied loss of concsiousness, chest pain, palpitations, incontinence or postictal confusion associated with her fall and furthermore denied any preceding aura. The patient's sister called her and felt that she "sounded funny" over the phone and when she went to visit her she found her lying on the floor on her right side. She called EMS and the patient was brought to [facility] ED for further evaluation. Examination in the ED found her to be afebrile and hemodynamically stable however laboratory studies demonstrated multiple derangements including leukocytosis, elevated troponin, a markedly elevated BNP and an elevated CPK. She was started on IV fluid hydration, heparin drip and subsequently admitted to the ICU for continued management of NSTEMI and rhabdomyolysis. PAST MEDICAL HISTORY: As per HPI. PAST SURGICAL HISTORY: Tonsillectomy. ALLERGIES: NKDA. MEDICATIONS: Lisinopril 40 mg p.o. daily. FAMILY HISTORY: Noncontributory. SOCIAL HISTORY: The patient denies any history of toxic habits. REVIEW OF SYSTEMS: A 12-point review of systems is negative except as per HPI. PHYSICAL EXAMINATION: VITAL SIGNS: Temperature 98, pulse 90, blood pressure 132/86, respiratory rate 18 and oxygen saturation 100% on 2L NC. GENERAL: No apparent distress. HEENT: Normocephalic and atraumatic. PERRL. EOMI. No scleral icterus. No conjunctival pallor. NECK: No JVD. No bruits. LUNGS: Clear to auscultation. CARDIOVASCULAR: Regular rate and rhythm. Normal S1 and S2. Grade III/ ARMANDO to RUSB. ABDOMEN: Normoactive bowel sounds. Soft, nontender and nondistended. EXTREMITIES: No edema. NEUROLOGIC: Awake, alert and oriented x 3. Moving all extremities. LABORATORY DATA: WBC 18.4 with 87% neutrophils, hemoglobin 14, hematocrit 43 and platelets 169. Sodium 142, potassium 4.5, chloride 111, bicarb 22, BUN 26, creatinine 0.9 and glucose 112. Troponin 6.34. BNP 18,100. CK 4971. IMAGING STUDIES: 1. Chest x-ray demonstrates no acute pathology. 2. CT of the head without contrast demonstrates a 5-mm round high attenuation lesion to the left basil ganglia. 3. MRI of the brain without contrast demonstrates no acute infarct or hemorrhage but does demonstrate findings suggestive of hypertensive cerebral angiopathy. ASSESSMENT: The patient is a 72-year-old woman with a past medical history of hypertension and remote history of TIA who was admitted to the ICU s/p mechanical fall for management of NSTEMI and rhabdomyolysis. PLAN: 1. NSTEMI. Input from Dr. Donohue noted and greatly appreciated. The patient has been started on Aspirin and Heparin after reviewing neuroimaging studies and ruling out intracranial hemorrhage. Continue cycle cardiac enzymes. The patient will likely require cardiac catheterization to evaluate her coronary arteries. 2. Dilated cardiomyopathy. As above input from Dr. Donohue greatly appreciated. Preliminary echocardiogram reveals a depressed LV function with an EF of 25-30% and aortic valve sclerosis. Continue with care as per Dr. Donohue. 3. Hypertension. Blood pressure remains controlled off antihypertensives. We will continue to monitor hemodynamics and resume medications as needed. 4. Rhabdomyolysis, mild. Continue with IV fluid hydration. CK trending favorably and no evidence of renal dysfunction. Continue to monitor urine output. 5. Leukocytosis. No evidence of infection and this may represent a stress response. Cultures pending. Procalcitonin pending. We will defer antimicrobials at present as she remains afebrile and with no localizing source of infection. CODE STATUS: Full code. Rico Thompson MD TAMELA
[2018-07-22] MEDS: Heparin25000 units/250ml 1/2NS 25,000 UNITS/250 ML BAG IV SCH (17:09)
[2018-07-23] MEDS: Sodium Chloride 0.9% 1,000 ML IV SCH (02:42)
[2018-07-23 03:07] LABS: BASO # 0.02 K/mm3 (0.0-2.0); BASO % 0.2 % (0.0-3.0); EOS # 0.1 (0.0-0.7); EOS % 0.9 % (1.5-5.0); GRAN # 7.96 (1.4-6.5); GRAN % 74.6 % (50.0-68.0); HEMOGLOBIN 13.1 g/dL (12.0-16.0); LYMPH # 1.4 (1.2-3.4); LYMPH % 13.4 % (22.0-35.0); MEAN CELL VOLUME 97.6 fl (80.0-105.0); MEAN CORPUSCULAR HEMOGLOBIN 31.9 pg (25.0-35.0); MEAN CORPUSCULAR HGB CONC 32.7 g/dl (31.0-37.0); MEAN PLATELET VOLUME 11.3 fl (7.0-11.0); MONO # 1.2 (0.1-0.6); MONO % 10.9 % (1.0-6.0); RBC 4.11 10^6/uL (3.5-6.1); RED CELL DISTRIBUTION WIDTH 13.9 % (11.5-14.5); WHITE BLOOD COUNT 10.7 10^3/uL (4.5-11.0)
[2018-07-23 03:42] LABS: ALB/GLOB RATIO 1.1 (1.1-1.8); ALBUMIN 3.2 g/dL (3.0-4.8); ALT/SGPT 58 U/L (7-56); AST/SGOT 106 U/L (14-36); BLOOD UREA NITROGEN 25 mg/dL (7-21); CALCIUM 8.5 mg/dL (8.4-10.5); GFR NON-AFRICAN AMERICAN > 60; HDL CHOLESTEROL 51 mg/dL (29-60)
[2018-07-23 04:30] LABS: LDL CHOLESTEROL 67 mg/dL (0-129)
--- NOTE | 2018-07-23 12:33 | CP.PCM.PN ---
Subjective - Date & Time of Evaluation Date of Evaluation: 07/23/18 Time of Evaluation: 08:00 - Subjective Subjective: Patient seen and examined, no major complaints. Objective - Vital Signs/Intake and Output Vital Signs (last 24 hours): Temp Pulse Resp BP Pulse Ox 98.3 F 76 22 118/56 L 97 07/23/18 04:00 07/23/18 04:00 07/22/18 18:45 07/22/18 18:45 07/22/18 18:45 Intake and Output: 07/23/18 07/23/18 06:59 18:59 Intake Total 1160 Output Total 100 Balance 1060 - Medications Medications: Current Medications Aspirin (Aspirin) 325 mg PO DAILY [facility] Last Admin: 07/23/18 11:10 Dose: 325 mg Clopidogrel Bisulfate (Plavix) 75 mg PO DAILY [facility] Last Admin: 07/23/18 11:10 Dose: 75 mg Sodium Chloride (Sodium Chloride 0.9%) 1,000 mls @ 60 mls/hr IV .[id number] [facility] Last Admin: 07/23/18 02:42 Dose: 60 mls/hr Heparin Sodium/Sodium Chloride (Heparin 29813 Units/250ml 1/2 Normal Saline) 25,000 units in 250 mls @ 11.43 mls/hr IV .[id number] [facility]; Protocol Last Titration: 07/23/18 03:29 Dose: 12 units/kg/hr, 11.43 mls/hr - Labs Labs: 07/23/18 03:00 07/23/18 03:00 PT 11.7 SECONDS (9.4-12.5) 07/21/18 13:10 INR 1.03 07/21/18 13:10 APTT 77.8 Seconds (25.1-36.5) H 07/23/18 02:45 - Constitutional Appears: Non-toxic, No Acute Distress - Head Exam Head Exam: NORMAL INSPECTION - Eye Exam Eye Exam: EOMI, Normal appearance - ENT Exam ENT Exam: Mucous Membranes Moist - Neck Exam Neck Exam: Full ROM - Respiratory Exam Respiratory Exam: Clear to Ausculation Bilateral, NORMAL BREATHING PATTERN - Cardiovascular Exam Cardiovascular Exam: REGULAR RHYTHM, +S1, +S2 - GI/Abdominal Exam GI & Abdominal Exam: Soft, Normal Bowel Sounds - Extremities Exam Extremities Exam: Normal Inspection - Neurological Exam Neurological Exam: Alert, Awake, Oriented x3 Assessment and Plan - Assessment and Plan (Free Text) Assessment: 72yo female a/w rhabdo, elevated troponin, NSTEMI Rhabdomyolosis Elevated Troponin, NSTEMI Fall Dehydration - currently afebrile, BP stable, comfortable in NAD, AAOx3, NO major complaints - labs, imaging, chart reviewed, troponin downtrending, CPK downtrending, o verall clinically improving - MRI brain with no ICH noted Recommend: - supp o2 as needed, duonebs PRN - cultures thus far negative, would hold Abx for now - possible cath tomorrow, will follow up with Cardiology - IVF 60cc/hr, EF 25% on ECHO - ASA, Plavix, Heparin drip - cardiology follow up - ECHO official read - GI ppx - DVT ppx,Heparin drip - transfer to telemetry
[2018-07-23] MEDS: Heparin25000 units/250ml 1/2NS 25,000 UNITS/250 ML BAG IV SCH (17:42)
--- NOTE | 2018-07-23 18:03 | CP.PCM.PN ---
Subjective - Date & Time of Evaluation Date of Evaluation: 07/23/18 Time of Evaluation: 13:00 - Subjective Subjective: SUBJECTIVE: No acute events overnight. She remains afebrile, hemodynamically stable and chest pain free. OBJECTIVE: VITAL SIGNS: Temperature 97.8, pulse 85, blood pressure 135/57, respiratory rate 18 and oxygen saturation 100% on 2L NC. GENERAL: No apparent distress. HEENT: Normocephalic and atraumatic. PERRL. EOMI. No scleral icterus. No conjunctival pallor. NECK: No JVD. No bruits. LUNGS: Clear to auscultation. CARDIOVASCULAR: Regular rate and rhythm. Normal S1 and S2. Grade III/ ARMANDO to RUSB. ABDOMEN: Normoactive bowel sounds. Soft, nontender and nondistended. EXTREMITIES: No edema. NEUROLOGIC: Awake, alert and oriented x 3. Moving all extremities. LABORATORY DATA: WBC 10.7, hemoglobin 13, hematocrit 40 and platelets 128. BMP reviewed and normal. ASSESSMENT: The patient is a 72-year-old woman with a past medical history of hypertension and remote history of TIA who was admitted to the ICU s/p mechanical fall for management of NSTEMI and rhabdomyolysis. PLAN: 1. NSTEMI. Input from Dr. Donohue noted and greatly appreciated. Continue ASA and Plavix. The patient will likely require cardiac catheterization to evaluate her coronary arteries. 2. Dilated cardiomyopathy. As above input from Dr. Donohue greatly appreciated. Continue with care as per Dr. Donohue. 3. Hypertension. Blood pressure remains controlled off antihypertensives. We will continue to monitor hemodynamics and resume medications as needed. 4. Rhabdomyolysis, mild, resolving. Continue with IV fluid hydration. Continue to monitor urine output. 5. Leukocytosis, likely secondary to stress response, resolving. Continue to monitor for fever and leukocytosis. CODE STATUS: Full code. Objective - Vital Signs/Intake and Output Vital Signs (last 24 hours): Temp Pulse Resp BP Pulse Ox 97.9 F 85 25 H 135/57 L 96 07/23/18 12:00 07/23/18 14:00 07/23/18 13:00 07/23/18 13:00 07/23/18 13:00 Intake and Output: 07/23/18 07/23/18 06:59 18:59 Intake Total 1160 125 Output Total 100 Balance 1060 125 - Medications Medications: Current Medications Aspirin (Aspirin) 325 mg PO DAILY [facility] Last Admin: 07/23/18 11:10 Dose: 325 mg Clopidogrel Bisulfate (Plavix) 75 mg PO DAILY [facility] Last Admin: 07/23/18 11:10 Dose: 75 mg Sodium Chloride (Sodium Chloride 0.9%) 1,000 mls @ 60 mls/hr IV .[id number] [facility] Last Admin: 07/23/18 02:42 Dose: 60 mls/hr Heparin Sodium/Sodium Chloride (Heparin 24369 Units/250ml 1/2 Normal Saline) 25,000 units in 250 mls @ 11.43 mls/hr IV .[id number] [facility]; Protocol Last Admin: 07/23/18 17:42 Dose: 12 units/kg/hr, 11.43 mls/hr - Labs Labs: 07/23/18 03:00 07/23/18 03:00 PT 11.7 SECONDS (9.4-12.5) 07/21/18 13:10 INR 1.03 07/21/18 13:10 APTT 77.8 Seconds (25.1-36.5) H 07/23/18 02:45
--- NOTE | 2018-07-23 21:25 | PN ---
DATE: 07/23/2018 CARDIOLOGY FOLLOWUP SUBJECTIVE: The patient is chest pain free. PHYSICAL EXAMINATION: VITAL SIGNS: Blood pressure is 135/57, heart rate is in the 80s. NECK: Negative JVD. LUNGS: Without rales. HEART: S1 and S2. EXTREMITIES: Without edema. LABORATORY DATA: Hemoglobin is 13.1. Chemistries: BUN and creatinine are unremarkable. Liver function tests have improved. IMPRESSION: 1. [id number] myocardial infarction. 2. Coronary artery disease. 3. Status post syncope. 4. Status post rhabdomyolysis. PLAN: Given these findings, the patient is for cardiac catheterization in the morning. Gurmeet Donohue MD
[2018-07-24 07:38] LABS: BASO # 0.01 K/mm3 (0.0-2.0); BASO % 0.1 % (0.0-3.0); EOS # 0.1 (0.0-0.7); EOS % 1.5 % (1.5-5.0); GRAN # 6.09 (1.4-6.5); GRAN % 74.1 % (50.0-68.0); HEMOGLOBIN 11.8 g/dL (12.0-16.0); LYMPH # 1.3 (1.2-3.4); LYMPH % 16.1 % (22.0-35.0); MEAN CELL VOLUME 96.8 fl (80.0-105.0); MEAN CORPUSCULAR HEMOGLOBIN 31.4 pg (25.0-35.0); MEAN CORPUSCULAR HGB CONC 32.4 g/dl (31.0-37.0); MONO # 0.7 (0.1-0.6); MONO % 8.2 % (1.0-6.0); RBC 3.76 10^6/uL (3.5-6.1); RED CELL DISTRIBUTION WIDTH 13.8 % (11.5-14.5); WHITE BLOOD COUNT 8.2 10^3/uL (4.5-11.0)
[2018-07-24 07:49] LABS: ALBUMIN 3.1 g/dL (3.0-4.8); ALT/SGPT 55 U/L (7-56); AST/SGOT 76 U/L (14-36); BLOOD UREA NITROGEN 19 mg/dL (7-21); CALCIUM 8.6 mg/dL (8.4-10.5); GFR NON-AFRICAN AMERICAN > 60
--- NOTE | 2018-07-24 08:58 | PN ---
SUBJECTIVE: The patient was seen and examined at bedside on the telemetry corrigan. No acute events overnight. She remains afebrile, hemodynamically stable and chest pain free. She is scheduled for cardiac catheterization this morning with Dr. Donohue. OBJECTIVE: VITAL SIGNS: Temperature 98, pulse 83, blood pressure 147/82, respiratory rate 20, oxygen saturation 95% on 2L NC. GENERAL: No apparent distress. HEENT: PERRL, EOMI. No scleral icterus. No conjunctival pallor. NECK: No JVD, no bruits. LUNGS: Clear to auscultation. CARDIOVASCULAR: Regular rate and rhythm. Normal S1, S2. Grade III/ ARMANDO to RUSB. ABDOMEN: Normoactive bowel sounds. Soft, nontender, nondistended. EXTREMITIES: No edema. NEUROLOGIC: Awake, alert and oriented x 3. No focal motor deficits. LABORATORY DATA: CBC reviewed and unremarkable. CMP reviewed and unremarkable. ASSESSMENT: The patient is a 72-year-old woman with a past medical history of hypertension and remote history of TIA who was admitted to the ICU s/p mechanical fall for management of NSTEMI and rhabdomyolysis who is now s/p transfer out of the ICU and pending cardiac catheterization. PLAN: 1. NSTEMI. Input from Dr. Donohue greatly appreciated and the patient is scheduled cardiac catheterization today. Continue Aspirin 325 mg p.o. daily, Plavix 75 mg p.o. daily. 2. Dilated cardiomyopathy. As above, input from Dr. Donohue greatly appreciated. The patient remains clinically euvolemic. Continue with care as above. 3. Hypertension. Blood pressure remains stable off antihypertensives. We will continue to monitor and initiate therapy as needed 4. Rhabdomyolysis, resolved. 5. Leukocytosis, likely secondary to stress response, resolving. CODE STATUS: Full code. Rico Thompson MD MTDD
[2018-07-24] MEDS: Heparin25000 units/250ml 1/2NS 25,000 UNITS/250 ML BAG IV SCH (13:10)
[2018-07-24] MEDS: Sodium Chloride 0.9% 1,000 ML IV SCH (13:14)
[2018-07-24] MEDS ORDERED: Iohexol 350 MG/100 ML VIAL ONE (13:25)
[2018-07-24] MEDS ORDERED: Iohexol 350mgl/ml 50 ML ONE (13:25)
[2018-07-24] MEDS ORDERED: Lidocaine 2% Inj (20ml) ONE (13:25)
[2018-07-24] MEDS ORDERED: Phenylephrine 10 mg/ml Inj ONE (13:25)
[2018-07-24] MEDS ORDERED: Midazolam 2 MG/2 ML VIAL ONE ×2 (13:58→14:01)
[2018-07-24] MEDS ORDERED: Sodium Chloride 0.9% 1,000 ML IV SCH (14:27)
--- NOTE | 2018-07-24 14:54 | CP.PCM.PCO ---
Physician Communication Note - Physician Communication Note Physician Communication Note: s/p cath no stent EF-25%
--- NOTE | 2018-07-24 18:43 | CARDCATH ---
PROCEDURE DATE: 07/24/2018 HISTORY: The patient is a 72-year-old woman, who presents with a syncopal episode, was found to have elevated troponin peaking at 6. The echocardiogram reveals depressed LV function. A cardiac catheterization was recommended. PROCEDURE: Left heart catheterization with coronary arteriography and left ventriculogram with supra-aortic valvular injection. The right femoral artery was cannulated with 6-Haitian sheath. There were no complications. I performed moderate sedation which included the presence of an independent trained observer that assisted in monitoring the patient's level of consciousness and physiologic status. After administration of Versed and fentanyl, my intra service time was 30 minutes. The findings on catheterization revealed a left ventricle that revealed akinesis anterior apical and inferior apical segments. The anterior basal and inferobasal segments moved well. Estimated ejection fraction is 25-30%. Supra-aortic valvular injection revealed no aortic insufficiency. The patient had a right dominant circulation. The RCA was within normal limits. The left main artery was unremarkable. There is calcium noted in the ostium of the LAD. The LAD and diagonal vessels were free of significant disease. Circumflex artery and obtuse marginal branches were free of significant disease. Angio-Seal was used to close the femoral artery site. The patient tolerated the procedure well. In summary, the procedure revealed unremarkable coronary arteries. Akinesis of the anterior, anterior apical, inferoapical and inferior wall. The anterobasal and inferobasal segment moves well. Overall ejection fraction was 25-30%. The findings on angiographic studies were consistent with Takotsubo cardiomyopathy. We will DC her Plavix, reduce her aspirin to 81 mg and add lisinopril to her regimen. Gurmeet Donohue MD
[2018-07-25 06:54] LABS: BASO # 0.01 K/mm3 (0.0-2.0); BASO % 0.1 % (0.0-3.0); EOS # 0.2 (0.0-0.7); HEMOGLOBIN 12.4 g/dL (12.0-16.0); LYMPH # 0.9 (1.2-3.4); LYMPH % 11.4 % (22.0-35.0); MEAN CELL VOLUME 96.1 fl (80.0-105.0); MEAN CORPUSCULAR HEMOGLOBIN 31.9 pg (25.0-35.0); MEAN CORPUSCULAR HGB CONC 33.2 g/dl (31.0-37.0); MEAN PLATELET VOLUME 11.3 fl (7.0-11.0); MONO # 0.8 (0.1-0.6); MONO % 10.5 % (1.0-6.0); RBC 3.89 10^6/uL (3.5-6.1); RED CELL DISTRIBUTION WIDTH 13.6 % (11.5-14.5); WHITE BLOOD COUNT 7.9 10^3/uL (4.5-11.0)
[2018-07-25 07:37] LABS: ALB/GLOB RATIO 1.1 (1.1-1.8); ALBUMIN 3.2 g/dL (3.0-4.8); ALT/SGPT 53 U/L (7-56); AST/SGOT 59 U/L (14-36); BLOOD UREA NITROGEN 13 mg/dL (7-21); CALCIUM 8.9 mg/dL (8.4-10.5); GFR NON-AFRICAN AMERICAN > 60
--- NOTE | 2018-07-25 08:23 | PN ---
SUBJECTIVE: The patient was seen and examined at bedside on the telemetry corrigan. No acute events overnight. She remains afebrile, hemodynamically stable and chest pain free. She is doing well s/p cartdiac catheterization and overall offers no complaints. OBJECTIVE: VITAL SIGNS: Temperature 98, pulse 83, blood pressure 140/76, respiratory rate 20, oxygen saturation 97% on 2L NC. GENERAL: No apparent distress. HEENT: PERRL, EOMI. No scleral icterus. No conjunctival pallor. NECK: No JVD, no bruits. LUNGS: Clear to auscultation. CARDIOVASCULAR: Regular rate and rhythm. Normal S1, S2. Grade III/ ARMANDO to RUSB. ABDOMEN: Normoactive bowel sounds. Soft, nontender, nondistended. EXTREMITIES: No edema. NEUROLOGIC: Awake, alert and oriented x 3. No focal motor deficits. LABORATORY DATA: CBC reviewed and unremarkable. CMP reviewed and unremarkable. ASSESSMENT: The patient is a 72-year-old woman with a past medical history of hypertension and remote TIA who was initially admitted to ICU s/p mechanical fall for management of rhabdomyolysis and NSTEMI and is now s/p cardiac catheterization with findings consistent with Takotsubo cardiomyopathy. PLAN: 1. Takotsubo cardiomyopathy. Input from Dr. Donohue noted and greatly appreciated. Continue Aspirin 81 mg p.o. daily and Lisinopril 10 mg p.o. daily. 2. Hypertension. Continue Lisinopril 10 mg p.o. daily. 3. Rhabdomyolysis, resolved. 4. Prophylaxis. GI prophylaxis not indicated as the patient is eating. DVT prophylaxis not indicated as the patient is ambulatory. CODE STATUS: Full code. Rico Thompson MD MTDPrashant
--- NOTE | 2018-07-25 13:13 | CP.PCM.PCO ---
Physician Communication Note - Physician Communication Note Physician Communication Note: pauses vs afib will monitor for 24hrs as per Dr. Donohue
--- NOTE | 2018-07-25 14:01 | PN ---
DATE: 07/25/2018 SUBJECTIVE: The patient is without shortness of breath. PHYSICAL EXAMINATION: VITAL SIGNS: Blood pressure is 163/81 at its max and has come down to 137/76, heart rate is in the 80s. clinical research monitor shows periods of paroxysmal atrial fibrillation. NECK: Negative JVD. LUNGS: Without rales. HEART: S1 and S2. EXTREMITIES: Without edema. LABORATORY DATA: BUN and creatinine are unremarkable. Hemoglobin is 12.4. IMPRESSION: 1. Paroxysmal atrial fibrillation. 2. Questionable Takotsubo's cardiomyopathy. 3. Status post fall. 4. Non-ST elevation myocardial infarction. PLAN: Given these findings, we will continue the patient on her aspirin and lisinopril. We will monitor on telemetry for the next 24 hours while the patient ambulates with a walker. Gurmeet Donohue MD
--- NOTE | 2018-07-25 14:49 | CARD ---
APPROVED REPORT Date of service: 07/21/2018 EXAM: Two-dimensional and M-mode echocardiogram with Doppler and color Doppler. INDICATION NSTEMI/LVFX 2D DIMENSIONS Left Atrium (2D)4.2 (1.6-4.0cm) M-Mode DIMENSIONS Aortic Root2.80 (2.2-3.7cm) Aortic Valve AoV Peak Suanildp373.0cm/Jean Peak GR.13mmHgLVOT Peak Iejptaor606.0cm/s LVOT VTI23.40cmAI P 1/2 Vmnq419ip Mitral Valve E/A ratio0.0 TDI E/Lateral E'0.0E/Medial E'0.0 Tricuspid Valve TR Peak Xlprmngh215wf/sRAP [id number] Peak Gr.54mmHg [id number] LEFT VENTRICLE The systolic function is moderately impaired. Regional wall motion abnormalities noted. RIGHT VENTRICLE The right ventricle is normal size. ATRIA The left atrium is moderately dilated. The right atrium is mildly dilated. AORTIC VALVE The aortic valve is thickened but opens well. MITRAL VALVE The mitral valve is thickened but opens well. Mitral regurgitation is mild. TRICUSPID VALVE The tricuspid valve leaflets are thickened , but open well. There is mild tricuspid regurgitation. There is moderate pulmonary hypertension. PULMONIC VALVE The pulmonic valve is not well visualized. PERICARDIAL EFFUSION There is no pericardial effusion. <Conclusion> Segmental wall motion abnormality of the anterior apical region Dilated LA Mild MR and TR Moderate pulmonary hypertension
[2018-07-26 08:12] LABS: BASO # 0.01 K/mm3 (0.0-2.0); BASO % 0.1 % (0.0-3.0); EOS # 0.2 (0.0-0.7); EOS % 2.7 % (1.5-5.0); GRAN # 5.55 (1.4-6.5); GRAN % 71.9 % (50.0-68.0); HEMOGLOBIN 12.8 g/dL (12.0-16.0); LYMPH % 13.3 % (22.0-35.0); MEAN CORPUSCULAR HEMOGLOBIN 31.9 pg (25.0-35.0); MEAN CORPUSCULAR HGB CONC 33.6 g/dl (31.0-37.0); MEAN PLATELET VOLUME 11.4 fl (7.0-11.0); MONO # 0.9 (0.1-0.6); RBC 4.01 10^6/uL (3.5-6.1); RED CELL DISTRIBUTION WIDTH 13.3 % (11.5-14.5); WHITE BLOOD COUNT 7.7 10^3/uL (4.5-11.0)
[2018-07-26 08:30] LABS: ALBUMIN 3.3 g/dL (3.0-4.8); ALT/SGPT 55 U/L (7-56); AST/SGOT 49 U/L (14-36); BLOOD UREA NITROGEN 16 mg/dL (7-21); CALCIUM 9.1 mg/dL (8.4-10.5); GFR NON-AFRICAN AMERICAN > 60
--- NOTE | 2018-07-26 09:37 | PN ---
SUBJECTIVE The patient was seen and examined at bedside on the telemetry corrigan. No acute events overnight. She remains chest pain free. OBJECTIVE: VITAL SIGNS: Temperature 98.5, pulse 80, blood pressure 156/86, respiratory rate 20, oxygen saturation 98% on room air. GENERAL: No apparent distress. HEENT: PERRL, EOMI. No scleral icterus. No conjunctival pallor. NECK: No JVD, no bruits. LUNGS: Clear to auscultation. CARDIOVASCULAR: Regular rate and rhythm. Normal S1, S2. Grade III/ ARMANDO to RUSB. ABDOMEN: Normoactive bowel sounds. Soft, nontender, nondistended. EXTREMITIES: No edema. NEUROLOGIC: Awake, alert and oriented x 3. No focal motor deficits. LABORATORY DATA: CBC reviewed and unremarkable. CMP pending. ASSESSMENT: The patient is a 72-year-old woman with a past medical history of hypertension and remote TIA who was initially admitted to ICU s/p mechanical fall for management of rhabdomyolysis and NSTEMI who is now s/p cardiac catheterization with findings consistent with Takotsubo cardiomyopathy. PLAN: 1. Takotsubo cardiomyopathy. Input from Dr. Donohue noted and greatly appreciated. Continue Aspirin 81 mg p.o. daily and Lisinopril 10 mg p.o. daily. 2. Hypertension. Continue Lisinopril 10 mg p.o. daily. 3. Rhabdomyolysis, resolved. 4. Paroxysmal atrial fibrillation. The patient remains rate-controlled. We will discuss with Dr. Donohue, anticoagulation in this patient. 5. Prophylaxis. GI prophylaxis not indicated as the patient is eating. DVT prophylaxis not indicated as the patient is ambulatory. CODE STATUS: Full code. Rico Thompson MD MTDD
--- NOTE | 2018-07-26 12:27 | CP.PCM.APN ---
Subjective - Date & Time of Evaluation Date of Evaluation: 07/26/18 Time of Evaluation: 08:45 - Subjective Subjective: seen and examined 72 y/o F PMHx HTN, TIA BIBA after being found lying down on floor by sister this am. Unwitnessed syncope, down time is unknown. Patient lives home alone uses walker to ambulate regularly. In ED Patient found to have elevated CPK of 4971, WBC of 20.7, LDH of 1060, BNP 91070 and troponins of 3.48, 3.80 and 6.34. with no acute EKG changes. Patient had cardiac catheterization which revealed cardiomyopathy with an EF of 25-30%, Akinesis, anterior apical and inferior apical segments as well as calcium noted in ostium of the LAD as per cardiology Takotsubo, Cardiomyopathy. Patient on day 4 noted to have an episode of asymptomatic PAFIB which quickly converted back to NSR. Patient denies JACOME, dizziness, fever, chills, Dyspnea, cough, hemoptysis, chest pain, abdominal pain, N/V/D, hematemesis or rectal bleeding. Review of Systems - Constitutional Constitutional: As Per HPI - Cardiovascular Cardiovascular: As Per HPI - Respiratory Respiratory: As Per HPI - Gastrointestinal Gastrointestinal: As Per HPI Objective - Vital Signs/Intake and Output Vital Signs (last 24 hours): Temp Pulse Resp BP Pulse Ox 98.5 F 90 20 154/80 H 95 07/26/18 05:29 07/26/18 09:59 07/26/18 05:29 07/26/18 09:59 07/26/18 05:29 Intake and Output: 07/26/18 07/26/18 06:59 18:59 Intake Total 120 Balance 120 - Medications Medications: Current Medications Aspirin (Aspirin Chewable) 81 mg PO DAILY [facility] Last Admin: 07/26/18 09:59 Dose: 81 mg Lisinopril (Zestril) 10 mg PO DAILY [facility] Last Admin: 07/26/18 09:59 Dose: 10 mg - Labs Labs: 07/26/18 07:50 07/26/18 07:50 PT 11.7 SECONDS (9.4-12.5) 07/21/18 13:10 INR 1.03 07/21/18 13:10 APTT 25.4 Seconds (25.1-36.5) 07/25/18 02:45 - Constitutional Appears: Non-toxic, No Acute Distress - Head Exam Head Exam: ATRAUMATIC - Eye Exam Eye Exam: EOMI, PERRL - Neck Exam Neck Exam: Full ROM - Respiratory Exam Respiratory Exam: Clear to Ausculation Bilateral, NORMAL BREATHING PATTERN - Cardiovascular Exam Cardiovascular Exam: REGULAR RHYTHM, +S1, +S2 - GI/Abdominal Exam GI & Abdominal Exam: Normal Bowel Sounds - Extremities Exam Extremities Exam: Full ROM, Normal Capillary Refill - Neurological Exam Neuro motor strength exam: Left Upper Extremity: 5, Right Upper Extremity: 5, Left Lower Extremity: 4 (utilizes walker), Right Lower Extremity: 4 (utilizes walker ) - Psychiatric Exam Psychiatric exam: Normal Affect, Normal Mood - Skin Skin Exam: Dry, Normal Color, Warm - Additional Findings Additional findings: ITS Impressions Chest X-Ray 07/21/18 13:05 IMPRESSION: No active disease. No significant interval change compared to the prior examination(s). Elbow X-Ray 07/21/18 13:06 IMPRESSION: Unremarkable radiographs of the right elbow. Head CT 07/21/18 13:06 IMPRESSION: 5 millimeter round high attenuation at the left basal ganglia/thalamus new compared to the previous exam. The differential consideration includes hemorrhagic small lesion versus less likely posttraumatic in deep hemorrhage. Follow-up study or further evaluation by MRI is suggested. Volume loss and chronic microvascular white matter ischemic disease. Brain MRI 07/21/18 15:19 IMPRESSION: No evidence of acute infarct. No evidence of hyperintense T1 signal in the brain parenchyma to suggest acute hemorrhage. Findings suggestive of microhemorrhage in the brain parenchyma likely due to amyloid angiopathy or hypertensive cerebral angiopathy. ITS Impressions Chest X-Ray 07/21/18 13:05 IMPRESSION: No active disease. No significant interval change compared to the prior examination(s). Elbow X-Ray 07/21/18 13:06 IMPRESSION: Unremarkable radiographs of the right elbow. Head CT 07/21/18 13:06 IMPRESSION: 5 millimeter round high attenuation at the left basal ganglia/thalamus new compared to the previous exam. The differential consideration includes hemorrhagic small lesion versus less likely posttraumatic in deep hemorrhage. Follow-up study or further evaluation by MRI is suggested. Volume loss and chronic microvascular white matter ischemic disease. Brain MRI 07/21/18 15:19 IMPRESSION: No evidence of acute infarct. No evidence of hyperintense T1 signal in the brain parenchyma to suggest acute hemorrhage. Findings suggestive of microhemorrhage in the brain parenchyma likely due to amyloid angiopathy or hypertensive cerebral angiopathy. Assessment and Plan - Assessment and Plan (Free Text) Assessment: Takotsubo Cardiomyopathy EF 25-30% Syncope collapse NSTEMI Rhabdomyolysis Leukocytosis PAFIB Plan: Takotsubo Cardiomyopathy ASA/Lisinopril/Life Vest Syncope/collapse resolved NSTEMI ASA Rhabdomyolysis resolved Leukocytosis resolved PAFIB spontaneously converted to NSR without medication will continue to follow closely
--- NOTE | 2018-07-26 14:02 | PN ---
DATE: 07/26/2018 SUBJECTIVE: The patient is comfortable in bed. PHYSICAL EXAMINATION: VITAL SIGNS: Blood pressure is 154/80, heart rate is in the 90s. NECK: Negative JVD. LUNGS: Without rales. HEART: Reveal S1 and S2. EXTREMITIES: Without edema. LABORATORY DATA: Hemoglobin is 12.8. Chemistries: BUN and creatinine are unremarkable. IMPRESSION: 1. Status post syncope. 2. Probable Takotsubo's cardiomyopathy. 3. Need to rule out ventricular arrhythmias. 4. Hypertension. PLAN: Given these findings, the patient is stable on current medications. We will discontinue the patient on a LifeVest to rule out ventricular arrhythmia cause of her syncope. Gurmeet Donohue MD
[2018-07-27 06:34] VITALS: O2SAT 96
[2018-07-27 07:23] LABS: BASO # 0.02 K/mm3 (0.0-2.0); BASO % 0.3 % (0.0-3.0); EOS # 0.2 (0.0-0.7); GRAN # 5.99 (1.4-6.5); GRAN % 75.1 % (50.0-68.0); LYMPH # 0.9 (1.2-3.4); LYMPH % 11.2 % (22.0-35.0); MEAN CELL VOLUME 95.6 fl (80.0-105.0); MEAN CORPUSCULAR HGB CONC 33.5 g/dl (31.0-37.0); MEAN PLATELET VOLUME 11.9 fl (7.0-11.0); MONO # 0.8 (0.1-0.6); MONO % 10.4 % (1.0-6.0); RBC 4.06 10^6/uL (3.5-6.1); RED CELL DISTRIBUTION WIDTH 13.4 % (11.5-14.5)
[2018-07-27 07:45] LABS: ALB/GLOB RATIO 1.1 (1.1-1.8); ALBUMIN 3.4 g/dL (3.0-4.8); ALT/SGPT 54 U/L (7-56); AST/SGOT 43 U/L (14-36); BLOOD UREA NITROGEN 17 mg/dL (7-21); CALCIUM 9.1 mg/dL (8.4-10.5); GFR NON-AFRICAN AMERICAN > 60
--- NOTE | 2018-07-27 08:32 | PN ---
SUBJECTIVE The patient was seen and examined at bedside on the telemetry corrigan. No acute events overnight. She remains afebrile, hemodynamically stable and chest pain free. Arrangements are being made for visiting nursing services given that the patient has been placed on a life vest to monitor for ventricular arrhythmias. OBJECTIVE: VITAL SIGNS: Temperature 98.1, pulse 79, blood pressure 136/68, respiratory rate 18, oxygen saturation 96% on room air. GENERAL: No apparent distress. HEENT: PERRL, EOMI. No scleral icterus. No conjunctival pallor. NECK: No JVD, no bruits. LUNGS: Clear to auscultation. CARDIOVASCULAR: Regular rate and rhythm. Normal S1 and S2. Grade III/ ARMANDO to RUSB. ABDOMEN: Normoactive bowel sounds. Soft, nontender, nondistended. EXTREMITIES: No edema. NEUROLOGIC: Awake, alert and oriented x 3. No focal motor deficits. LABORATORY DATA: CBC reviewed and unremarkable. CMP reviewed and unremarkable. ASSESSMENT: The patient is a 72-year-old woman with a past medical history of hypertension and remote TIA who was initially admitted to ICU s/p mechanical fall for management of rhabdomyolysis and NSTEMI who is now s/p cardiac catheterization with findings consistent with Takotsubo cardiomyopathy. PLAN: 1. Takotsubo cardiomyopathy. Input from Dr. Donohue greatly appreciated. Continue Aspirin 81 mg p.o. daily and Lisinopril 10 mg p.o. daily. 2. Hypertension. Continue Lisinopril 10 mg p.o. daily. 3. Paroxysmal AFib. The patient remains rate-controlled. Continue with care as per Dr. Donohue. 4. Rhabdomyolysis, resolved. 5. Prophylaxis. GI prophylaxis not indicated as the patient is eating. DVT prophylaxis not indicated as the patient is ambulatory. CODE STATUS: Full code. Rico Thompson MD MTDD
[2018-07-27 19:26] VITALS: BP 123/70; PULSE 80; RESP 18; TEMP 97.7
--- NOTE | 2018-07-27 20:29 | VASCLAB ---
DATE: 07/27/2018 SUBJECTIVE: The patient is without shortness of breath and without chest pain. PHYSICAL EXAMINATION: VITAL SIGNS: Blood pressure 136/68, heart rate is 80, normal sinus rhythm. NECK: Negative JVD. LUNGS: Without rales. HEART: S1 and S2. EXTREMITIES: Without edema. LABORATORY DATA: Hemoglobin is 13. Chemistries: BUN and creatinine are unremarkable. IMPRESSION: 1. Takotsubo's cardiomyopathy. 2. Non-ST elevation myocardial infarction. 3. Paroxysmal atrial fibrillation for a short period. The patient now remains in normal sinus rhythm. 4. Nonobstructive coronary artery disease. PLAN: Given these findings, the patient is stable for discharge. The patient has a LifeVest to rule out arrhythmias as a cause of her syncope when she presented. Followup and instructions were given. Gurmeet Donohue MD
== END 2018-07-27 19:30 | disposition home or self-care (01) | DRG 281 ==
LOC: ED 12:42 → ERH 15:04 → CCU 17:06 → 2RNO 07-24 00:15
PROVIDERS: ADMIT Internal Medicine; ATTEND Internal Medicine
PROC: 4A023N7 Measurement of Cardiac Sampling and Pressure, Left Heart, Percutaneous Approach (ICD-10-PCS; principal; 2018-07-24)
PROC: B2111ZZ Fluoroscopy of Multiple Coronary Arteries using Low Osmolar Contrast (ICD-10-PCS; 2018-07-24)
PROC: B2151ZZ Fluoroscopy of Left Heart using Low Osmolar Contrast (ICD-10-PCS; 2018-07-24)
DX: I21.4 Non-ST elevation (NSTEMI) myocardial infarction (principal); M62.82 Rhabdomyolysis; I42.0 Dilated cardiomyopathy; I51.81 Takotsubo syndrome; I10 Essential (primary) hypertension; I48.0 Paroxysmal atrial fibrillation; I25.10 Atherosclerotic heart disease of native coronary artery without angina pectoris; I70.0 Atherosclerosis of aorta; R73.03 Prediabetes; D72.829 Elevated white blood cell count, unspecified; E86.0 Dehydration; E66.9 Obesity, unspecified; Z68.36 Body mass index [BMI] 36.0-36.9, adult; W01.0XXA Fall on same level from slipping, tripping and stumbling without subsequent striking against object, initial encounter; Z86.73 Personal history of transient ischemic attack (TIA), and cerebral infarction without residual deficits; Z91.81 History of falling